=== PATIENT | male | born 1940 | race Caucasian/White ===

== ENCOUNTER 2024-04-04 05:42 | Day surgery (SDC) | payer MEDICARE, OTHER ==
[~2024-04-04] VITALS: Ht 160 cm; Wt 56.4 kg
[~2024-04-04 05:42] MED LIST: AMLO5TAB66 PO; ATOR40TA71 PO; CARV6.2534 PO; FINA5TAB41 PO; INSU100V45 SQ; INSU100V51 SQ; MOXIFLOXACIN HCL 0.5% 3 ML OPHTHALMIC SOLUTION ONE; PHENYLEPHRINE HCL 2.5% 2 ML OPHTHALMIC SOLUTION ONE; RINGERS SOLUTION,LACTATED 500 ML IV ONE; TAMS0.4C94 PO; TETRACAINE HCL/PF 0.5% 4 ML OPHTHALMIC SOLUTION ONE
[2024-04-04] MEDS ORDERED: PrednisoLONE ACETATE 1% 5 ML OPHTHALMIC SUSPENSION ONE (06:18)
[2024-04-04] MEDS ORDERED: MIDAZOLAM HCL 2 MG/2 ML VIAL ONE (06:20)
[2024-04-04] MEDS ORDERED: FentaNYL CITRATE PF 100 MCG/2 ML VIAL ONE (06:20)
[2024-04-04] MEDS: TETRACAINE HCL/PF 0.5% 4 ML OPHTHALMIC SOLUTION OD ONE (06:24)
[2024-04-04] MEDS: RINGERS SOLUTION,LACTATED 500 ML IV ONE (06:24)
[2024-04-04] MEDS: PHENYLEPHRINE HCL 2.5% 2 ML OPHTHALMIC SOLUTION OD ONE (06:24)
[2024-04-04] MEDS: MOXIFLOXACIN HCL 0.5% 3 ML OPHTHALMIC SOLUTION OD ONE (06:27)
[2024-04-04] MEDS: LIDOCAINE 2%/EPI 1:200,000/PF 20 ML VIAL ONE (07:00)
[2024-04-04] MEDS ORDERED: ACETAMINOPHEN 325 MG TABLET PO PRN (07:00)
[2024-04-04] MEDS: MitoMYcin 0.2 MG/VIAL KIT FOR OPHTHALMIC USE OD ONE (07:00)
[2024-04-04] MEDS: NEOMYCIN/POLYMYXIN B/DEXAMETH 3.5 GM OPHTHALMIC OINTMENT ONE (07:00)
[2024-04-04] MEDS: POVIDONE-IODINE 5% 30 ML OPHTHALMIC SOLUTION ONE (07:00)
[2024-04-04] MEDS: BALANCED SALT 15 ML OPHTHALMIC IRRIG.SOLN ONE (07:00)
[2024-04-04 07:16] LABS: GLUCOMETER DEV NAME(LOC) SDS.; GLUCOSE,POINT OF CARE 68 MG/DL (70-110)
== END 2024-04-04 08:30 | disposition home or self-care (01) ==
LOC: SURGERY 05:42
PROVIDERS: ATTEND Ophthalmology
DX: H11.001 Unspecified pterygium of right eye (principal); Z79.899 Other long term (current) drug therapy; Z91.013 Allergy to seafood; E11.9 Type 2 diabetes mellitus without complications; I10 Essential (primary) hypertension; Z98.890 Other specified postprocedural states; E78.00 Pure hypercholesterolemia, unspecified
CPT/HCPCS: 65426; 82962; 88305; 93005; J3010; J2250; J7120; V2790